=== PATIENT | female | born 1955 | race Caucasian/White ===

== ENCOUNTER 2019-12-01 12:11 | Day surgery (SDC) | payer OTHER ==
[~2019-12-01] VITALS: Ht 175.3 cm; Wt 111.9 kg
[~2019-12-01 12:11] MED LIST: ASPI81TA45 PO; BIOT300T5 PO; CALCIUM PO; CELEBREX; CHOL5000 PO; IRON PO; OLME20TA27 PO; ROSU20TA2 PO; UBID200C35 PO; VIT1CAPS11 PO
[2019-12-01] MEDS ORDERED: GABAPENTIN 300 MG CAPSULE PO ONE (12:30)
[2019-12-01] MEDS ORDERED: ACETAMINOPHEN 500 MG TABLET PO ONE (12:30)
[2019-12-01] MEDS ORDERED: LACTATED RINGERS 1,000 ML IV SCH (12:31)
[2019-12-01] MEDS ORDERED: FENTANYL PF 250 MCG/5ML ONE (12:32)
[2019-12-01] MEDS ORDERED: MIDAZOLAM 1 MG/ML, 2ML ONE (12:32)
[2019-12-01] MEDS ORDERED: INDOCYANINE GREEN 25 MG VIAL ONE ×2 (12:52→12:57)
[2019-12-01] MEDS ORDERED: HEPARIN 5,000 UNITS/ML, 1ML ONE (12:57)
[2019-12-01] MEDS ORDERED: BUPIVACAINE/PF-EPI 0.25% 1:200K ONE (12:57)
[2019-12-01 12:59] VITALS: BP 180/89
[2019-12-01] MEDS ORDERED: LIDOCAINE-MPF 1%, 2ML INFIL ONE (13:00)
[2019-12-01] MEDS ORDERED: INDOCYANINE GREEN 25 MG VIAL IVPush ONE (13:00)
[2019-12-01] MEDS ORDERED: CEFOTETAN PMX 2GM/50ML 50 ML IV ONE (13:00)
[2019-12-01 13:30] LABS: ALANINE AMINOTRANSFERASE 27 U/L (12-78); ALBUMIN 3.9 g/dL (3.4-5.0); ANION GAP 9 mmol/L (5-15); CALCIUM 9.5 mg/dL (8.5-10.1); CHLORIDE 107 mmol/L (98-107); CREATININE 0.69 mg/dL (0.55-1.02)
[2019-12-01 13:32] LABS: ALKALINE PHOSPHATASE 115 U/L (45-117); BILIRUBIN,TOTAL 0.8 mg/dL (0.2-1.0); TOTAL PROTEIN 7.8 g/dL (6.4-8.2)
[2019-12-01] MEDS ORDERED: LIDOCAINE 2% 100MG/5ML SYRINGE ONE (13:45)
[2019-12-01] MEDS ORDERED: KETOROLAC 30 MG/1 ML ONE (13:45)
[2019-12-01] MEDS ORDERED: ALBUTEROL/IPRATROPIUM 2.5MG/0.5MG, 3 ML NPPB PRN (14:30)
[2019-12-01] MEDS ORDERED: FENTANYL PF 100 MCG/2ML IV PRN (14:30)
[2019-12-01] MEDS ORDERED: hydrALAzine 20 MG/ML, 1ML IV PRN (14:30)
[2019-12-01] MEDS ORDERED: DIAZEPAM 5 MG/ML, 2ML IVPush PRN (14:30)
[2019-12-01] MEDS ORDERED: MEPERIDINE/PF 25MG/ML,1ML IVPush PRN (14:30)
[2019-12-01] MEDS ORDERED: OXYcodone 5 MG/5 ML ORAL.SOL UDC PO PRN (14:30)
[2019-12-01] MEDS ORDERED: METOPROLOL 1 MG/ML, 5ML IV PRN (14:30)
[2019-12-01] MEDS ORDERED: PROMETHAZINE 25 MG/ML, 1ML IV PRN (14:30)
[2019-12-01] MEDS ORDERED: MIDAZOLAM 1 MG/ML, 2ML IV PRN (14:30)
[2019-12-01] MEDS ORDERED: ONDANSETRON 2MG/ML, 2ML ONE (16:18)
[2019-12-01] MEDS ORDERED: PROPOFOL 10 MG/ML, 20ML ONE (16:18)
[2019-12-01] MEDS ORDERED: DEXAMETHASONE 4 MG/ML, 1ML ONE (16:18)
[2019-12-01] MEDS ORDERED: GLYCOPYRROLATE 0.2MG/1ML, 5ML ONE (16:18)
[2019-12-01] MEDS ORDERED: ROCURONIUM 10MG/ML,5ML ONE (16:18)
[2019-12-01] MEDS ORDERED: NEOSTIGMINE 1 MG/ML, 10ML ONE (16:18)
[2019-12-01] MEDS ORDERED: OXYcodone 5 MG/5 ML ORAL.SOL UDC ONE (17:17)
[2019-12-01] MEDS ORDERED: HYDROmorphone 1 MG/ML, 1ML INJ ONE (17:41)
[2019-12-01] MEDS: HYDROmorphone 1 MG/ML, 1ML INJ IVPush PRN ×2 (17:44→17:50)
== END 2019-12-01 20:35 | disposition home or self-care (01) ==
LOC: OUT 12:11 → 4NE 18:23 → OUT 20:35
PROVIDERS: ATTEND Specialist
DX: C54.1 Malignant neoplasm of endometrium (principal); K80.10 Calculus of gallbladder with chronic cholecystitis without obstruction; I10 Essential (primary) hypertension; E78.5 Hyperlipidemia, unspecified; E66.9 Obesity, unspecified; M19.90 Unspecified osteoarthritis, unspecified site; Z79.82 Long term (current) use of aspirin; Z79.899 Other long term (current) drug therapy
CPT/HCPCS: 36415; 38570; 38900; 47562; 58552; 80053; 86304; 86850; 86900; 86923; 88112; 88304; 88307; 88309; 88331; 88333; J1100; J1170; J1644; J1885; J2250; J2405; J2704; J2710; J3010; J3490; J7120; S2900; 88305; G0378